=== PATIENT | male | born 1990 | race Caucasian/White ===

== ENCOUNTER 2019-11-01 01:15 | Emergency (ER) | payer OTHER ==
[~2019-11-01] VITALS: Ht 180.3 cm; Wt 75.0 kg
[2019-11-01 01:17] VITALS: BP 126/72
== END 2019-11-01 01:55 ==
LOC: ER 01:15
DX: Z04.1 Encounter for examination and observation following transport accident (principal); V49.88XA Car occupant (driver) (passenger) injured in other specified transport accidents, initial encounter; Y93.89 Activity, other specified; Y92.413 State road as the place of occurrence of the external cause; Y99.9 Unspecified external cause status
CPT/HCPCS: 99283